=== PATIENT | female | born 1990 | race Caucasian/White ===

== ENCOUNTER 2016-08-04 12:44 | Inpatient (IN) | payer OTHER ==
[~2016-08-04] VITALS: Ht 157.4 cm; Wt 99.1 kg
--- NOTE | ~2016-08-04 | CON ---
[place], [place] REPORT OF CONSULTATION [id number] UN[facility] #: [id number] ROOM: 404 DOCTOR: JACQUELINE POLANCO MD BIRTHDATE: [birth year] DOS: 08/05/2016 PULMONARY CONSULTATION, EVALUATION AND MANAGEMENT CONSULTATION REQUESTED BY: Hospitalist Service. HISTORY OF PRESENT ILLNESS: A 26-year-old white female without any known past medical history of hypercoagulability or other pulmonary problem, presented to the Emergency Room with the patient developed symptoms of increased shortness of breath at work. The patient denies any symptoms of chest pain as well. The chest pain was described with coughing, which has started in the last few days. The coughing has been noted moderate to severe, nonproductive. The patient denies symptoms of fever or chills associated with that. Denies any symptoms of wheezing. She was seen in the Emergency Room and has been admitted to the hospital after she underwent a workup and CT of the chest was also completed that described relative poor quality and with the possibility of pulmonary embolism for this patient was also suggested. REVIEW OF SYSTEMS: CONSTITUTIONAL: The patient noticed symptom of fatigue and tiredness without any fever or chills. EYES: Denies any burning, redness, or tenderness. EARS, NOSE, AND THROAT: Denies sore throat, hoarseness, or otalgia. CARDIOVASCULAR: Denies angina pain, palpitations. The pain in the chest was described in the lower portion of the rib cage, occurs with cough. GASTROINTESTINAL: Denies nausea, vomiting, diarrhea, abdominal pain, hematemesis, melena, or hematochezia. SKIN: No lesions or rashes. GENITOURINARY: Denies dysuria, suprapubic pain, or hematuria. MUSCULOSKELETAL: Denies acute joint pain, redness, or tenderness. CENTRAL NERVOUS SYSTEM: Denies symptoms of dizziness, headache, or diplopia. Remaining systems were reviewed with the patient, they were noted all negative. PAST MEDICAL HISTORY: The patient was known with: 1. History of chronic obesity. 2. Tobacco use. PAST SURGICAL HISTORY: Noted as . SOCIAL HISTORY: The patient is not . She does have 3 children. Denies history of alcohol use or any illicit drugs use. Denies any occupation related pulmonary exposure history. FAMILY HISTORY: Mother is 40 years old, father is 39 years old and both described to be healthy without any hypercoagulability problems. DRUG ALLERGIES: Noted no known drug allergies. HOME MEDICATIONS: Noted control pills. [place], [place] REPORT OF CONSULTATION NAME: ERNESTINA HAYS UNIT #: [id number] ROOM: 404 DOCTOR: PAUL SMYTH MD,JACQUELINE BIRTHDATE: [birth year] PHYSICAL EXAMINATION: GENERAL: This is a 26-year-old white female, noted currently awake and alert without any distress. VITAL SIGNS: Height of 5 feet 2 inches, weight of 218 pounds, BMI 39.9. Vital signs of the patient which have been recorded shows a normal temperature, respiratory rate of 20-16, heart rate of 113-83, blood pressure 125/60-140/74. Pulse oxygen saturation of the patient noted on 2 L nasal cannula was 92% on admission. HEENT: Moderate obesity. Head was atraumatic. Eyes nonicterus. Decreased posterior pharyngeal space. CARDIOVASCULAR: S1, S2 is audible. LUNGS: Noted with generalized reduction of the breath sounds bilaterally without any crackles, rhonchi, or wheezing. ABDOMEN: Noted soft and obese. EXTREMITIES: Noted chronic obesity without any edema, clubbing, or cyanosis. LABORATORY DATA: The lactic acid on 08/04 for this patient was noted normal. CBC for the patient was noted as normal study. The influenza A and B nasal washing antigens were negative. CMP for the patient noted as normal BUN and creatinine. The PT, PTT for the patient yesterday was noted as normal. Repeat CK-MB and troponin for the patient were noted as normal. Repeat PT, PTT was normal as well. CMP of patient shows glucose 133, BUN 5, creatinine 0.54. Magnesium 2.2. Ultrasound of both lower extremities does not show evidence of deep venous thrombosis. The chest x-ray that was done, 2-view on 08/04/2016 for the patient was noted as possibility of acute pneumonic infiltration in the lungs. The CT scan of the chest, which was done was personally reviewed, shows evidence of infiltration, which were noted patchy in the lingula, area of consolidation. The CT of the chest was done, which was noted limited finding for this patient at this time were described with questionable attenuation in the left main pulmonary artery as a filling defect. A defect was also described for the patient in the right pulmonary artery by the radiologist, but the study was noted suboptimal. Motion artifact for this patient was noted. Subcarinal lymph nodes for the patient were also noted. IMPRESSION: 1. The patient who has been presented to the hospital at this time with the current finding of pain, which is described under the ribcage with ongoing symptoms of cough as well as chest pain. The patient was described possibility of pulmonary embolism, which was noted a questionable finding because of suboptimal study. Certainly, as I reviewed the CT scan of the chest, I am not very convinced that the patient does have pulmonary embolism because of the lymphoid tissue and fatty tissue noted in that area of the hilar area. Definitive finding of consolidation of the lingula for the patient was noted as finding consistent most likely acute pneumonia. 2. The patient does have a risk of control pills. A negative venous duplex was noted. There were no findings of deep venous thrombosis. [place], [place] REPORT OF CONSULTATION NAME: ERNESTINA HAYS UNIT #: [id number] ROOM: [facility] DOCTOR: PAUL SMYTH MD,[facility] BIRTHDATE: [birth year] PLAN OF TREATMENT: The patient is currently treated with use of bronchodilators, IV Solu-Medrol, and antibiotics for the community-acquired infection. She is also getting the Lovenox for the management of pulmonary embolism. The findings of this current abnormal CT scan will be discussed with another staff radiologist to get second opinion if necessary. We will definitively consider additional testing for this patient such as repeating CT of the chest with better study for more adequate pulmonary opacification to definitively rule out pulmonary embolism before committing the patient for the long-term anticoagulation. Hypercoagulability workup will be obtained for the patient if the diagnosis of pulmonary will be confirmed with repeat testing. There was no D-dimer done for this patient that is nonspecific for the pulmonary embolism or thromboembolism, but certainly if is noted negative, it does rule out the possibility of pulmonary embolism with higher specificity. At this time, the D-dimer if it would be done for this patient may be a false positive as well because of the consideration of infection. Thanks for allowing me to participate in the care of this patient. JACQUELINE MILLER MD CM:CONSTR:REPORT OF CONSULTATION 1609 09/07/16 1530 interface
--- NOTE | ~2016-08-04 | PR ---
[place], [place] PROGRESS NOTE NAME: ERNESTINA HAYS UNIT #: [id number] ROOM: 404 DOCTOR: JACQUELINE POLANCO MD BIRTHDATE: [birth year] DOS: 08/06/2016 PULMONARY PROGRESS NOTE SUBJECTIVE: She has been noted reduction of the chest pain and cough. Shortness of breath has been improving. There are no symptoms of abdominal pain. There was no hemoptysis. OBJECTIVE: VITAL SIGNS: Showed normal temperature, respiratory rate 20, heart rate of 111-81, blood pressure 139/61-128/64. HEENT: Chronic obesity. NECK: Supple. CARDIOVASCULAR SYSTEM: S1, S2 audible. LUNGS: Noted with moderate decreased breath sounds with occasional wheezing. Crackles still noted in the left lung. ABDOMEN: Soft, nontender. LABORATORY DATA AND DIAGNOSTIC STUDIES: D-dimer of the patient yesterday was noted as negative. The CT of the chest which was reviewed yesterday with another radiologist for this patient. He concurred with my finding and the current finding for this patient was noted consistent with evidence of pulmonary embolism. IMPRESSION: 1. The patient with acute pneumonia of the patient involving the left lingular subsegment with the current chest pain and acute exacerbation of asthmatic bronchitis of the patient has been considered. 2. Chronic obesity. 3. History of nicotine abuse. PLAN OF TREATMENT: The pulmonary embolism of the patient is not considered likely at this time. The patient's therapeutic Lovenox was discontinued completely yesterday and she was started on the DVT prophylaxis. The patient with the Lovenox 40 mg subQ daily. The patient has been receiving the corticosteroids, the antibiotics. The patient has been responding to the treatment positively. Lymphadenopathy, which was noted in the mediastinum of the patient may require further assessment as an outpatient to rule out lung disease such as sarcoidosis and others. The patient could be discharged home whenever it is necessary, tapering dose of prednisone, oral antibiotics, and bronchodilators. The case was also discussed with Dr. Vivek Mcmanus who is the attending for this patient for today's visit. [place], [place] PROGRESS NOTE NAME: ERNESTINA HAYS UNIT #: [id number] ROOM: 404 DOCTOR: JACQUELINE POLANCO MD BIRTHDATE: [birth year] JACQUELINE MILLER MD CM:LOCO [id number] JACQUELINE SMYTH MD 09/07/16 1529 interface
--- NOTE | ~2016-08-04 | WRIGHTHP ---
[place], [place] PATIENT HISTORY AND PHYSICAL EXAM NAME: ERNESTINA HAYS [facility] #: [id number] UNIT #: [id number] ROOM: 404 DOCTOR: SONY BEAL DO BIRTHDATE: [birth year] DOS: 08/04/2016 PRIMARY CARE PHYSICIAN: None. The patient was seen and evaluated with the resident on 08/04/2016. Please see the resident's note for further details. ASSESSMENT: 1. Acute bilateral pulmonary emboli. 2. Acute community acquired pneumonia. 3. Dyspnea on exertion. 4. Tobacco abuse. 5. Recent initiation of control approximately 2 months ago. PLAN: We will continue high dose Lovenox for anticoagulation. Antibiotics will be started for the pneumonia. Follow up on final blood cultures. Dr. Santos will be consulted for further evaluation. SONY BEAL DO CM:HISPHYS:PATIENT HISTORY AND PHYSICAL EXAMINATION [phone] SONY BEAL DO 08/04/16 183 interface
[~2016-08-04 12:44] MED LIST: AMOXICILLIN500 M2 PO; AMOXICILLIN500 MG PO; ANAPROX DS550 MG PO; CEPHALEXIN500 M1 PO; CIPROFLOXACIN500 MG PO; CLINDAMYCIN HC300 MG PO; COLACE100 MG PO; DIFLUCAN150 MG PO; DULCOLAX5 MG PO; EES400 MG PO; HYDROCODONE BIT1 T11 PO; IBUPROFEN600 MG PO; IRON FERROUS S325 MG PO; KEFLEX500 MG PO; MACROBID100 M1 PO; NKHM; PRENATAL1 TA1 PO; PRENATAL1 TA3 PO; PRENATAL1 TA7 PO; SALETO800 MG PO; TRAMADOL HCL50 MG PO; TYLENOL325 M1 PO; ZITHROMAX Z PA250 MG PO; ZOFRAN ODT4 MG SL
[2016-08-04 12:51] VITALS: BP 141/76
[2016-08-04 13:20] LABS: BASO # 0.1 10*3/uL (0.0-0.1); BASO % 0.8 % (0.0-1.0); EOS # 0.4 10*3/uL (0.0-0.4); EOS % 4.4 % (1.0-4.0); HEMATOCRIT 38.6 % (37.0-47.0); HEMOGLOBIN 12.3 g/dl (12.0-16.0); LYMPH # 2.4 10*3/uL (1.3-4.4); LYMPH % 29.7 % (27.0-41.0); MEAN CELL VOLUME 85.6 fl (81.0-99.0); MEAN CORPUSCULAR HGB 27.3 pg (27.0-31.0); MEAN CORPUSCULAR HGB CONC 31.9 g/dl (33.0-37.0); MEAN PLATELET VOLUME 11.1 fl (9.6-12.3); MONO # 0.5 10*3/uL (0.1-1.0); MONO % 6.6 % (3.0-9.0); NEUT # 4.6 10*3/uL (2.3-7.9); NEUT % 58.2 % (47.0-73.0); PLATELET COUNT AUTOMATED 317 10*3/uL (130-400); RED BLOOD COUNT 4.51 10*6/uL (4.10-5.10); RED CELL DISTRI WIDTH 16.9 % (0-14.5)
[2016-08-04 13:35] LABS: ALBUMIN 3.6 gm/dl (3.1-4.5); ALKALINE PHOSPHATASE 123 U/L (45-117); BILIRUBIN, TOTAL 0.4 mg/dl (0.2-1.0); BUN 8 mg/dl (7-24); CARBON DIOXIDE 25 mmol/L (21-32); CHLORIDE 106 mmol/L (98-107); EST GLOM FILT AFRICAN AMERICAN > 60 ml/min; GLUCOSE 90 mg/dL (65-99); POTASSIUM 4.2 mmol/L (3.5-5.1); SGOT/AST 25 IU/L (3-35); SGPT/ALT 63 U/L (12-78); SODIUM 140 mmol/L (136-145); TOTAL PROTEIN 8.3 gm/dL (6.4-8.2)
[2016-08-04 13:59] VITALS: BP 143/71
[2016-08-04 16:10] LABS: INTERNATIONAL NORM RATIO 0.9 (2.0-3.5); PROTHROMBIN TIME 9.1 SECONDS (9.0-12.4)
[2016-08-04 17:52] VITALS: BP 134/77
[2016-08-04 18:30] LABS: CPK 51 U/L (26-192)
[2016-08-04 18:33] LABS: CKMB < 0.5 ng/ml (0.5-3.6); TROPONIN I < 0.015 ng/ml (<0.5)
[2016-08-04 20:00] VITALS: BP 121/50
[2016-08-05] VITALS: BP 125/60
[2016-08-05 00:44] LABS: CPK 48 U/L (26-192)
[2016-08-05 00:50] LABS: CKMB < 0.5 ng/ml (0.5-3.6); TROPONIN I < 0.015 ng/ml (<0.5)
[2016-08-05 06:16] LABS: BASO % 0.1 % (0.0-1.0); HEMOGLOBIN 11.3 g/dl (12.0-16.0); IG # 0.1 10*3/uL (0.0-0.1); LYMPH # 1.2 10*3/uL (1.3-4.4); LYMPH % 10.2 % (27.0-41.0); MEAN CELL VOLUME 87.4 fl (81.0-99.0); MEAN CORPUSCULAR HGB CONC 33.2 g/dl (33.0-37.0); MEAN PLATELET VOLUME 11.5 fl (9.6-12.3); MONO # 0.2 10*3/uL (0.1-1.0); MONO % 1.9 % (3.0-9.0); NEUT # 10.2 10*3/uL (2.3-7.9); NEUT % 87.4 % (47.0-73.0); PLATELET COUNT AUTOMATED 258 10*3/uL (130-400); RED BLOOD COUNT 3.89 10*6/uL (4.10-5.10); RED CELL DISTRI WIDTH 17.8 % (0-14.5); WHITE BLOOD COUNT 11.7 10*3/uL (4.8-10.8)
[2016-08-05 06:26] LABS: CKMB 0.5 ng/ml (0.5-3.6); CPK 39 U/L (26-192); TROPONIN I < 0.015 ng/ml (<0.5)
[2016-08-05 06:34] LABS: HEMOGLOBIN A1c 5.1 % (4.8-5.6)
[2016-08-05 06:49] LABS: INTERNATIONAL NORM RATIO 0.9 (2.0-3.5); PROTHROMBIN TIME 9.4 SECONDS (9.0-12.4)
[2016-08-05 07:00] LABS: ALBUMIN 3.4 gm/dl (3.1-4.5); ALKALINE PHOSPHATASE 105 U/L (45-117); BILIRUBIN, TOTAL 0.3 mg/dl (0.2-1.0); BUN 5 mg/dl (7-24); CARBON DIOXIDE 22 mmol/L (21-32); CHLORIDE 109 mmol/L (98-107); CHOLESTEROL 219 mg/dL (<200); EST GLOM FILT AFRICAN AMERICAN > 60 ml/min; FREE T4 1.25 ng/dl (0.76-1.46); GLUCOSE 133 mg/dL (65-99); HDL CHOLESTEROL 57 mg/dl (40-60); LDL CHOLESTEROL 137 mg/dL (9-159); MAGNESIUM 2.2 mg/dL (1.5-2.1); PHOSPHOROUS 2.9 mg/dL (2.5-4.9); POTASSIUM 3.9 mmol/L (3.5-5.1); SGOT/AST 23 IU/L (3-35); SGPT/ALT 58 U/L (12-78); SODIUM 141 mmol/L (136-145); THYROID STIM HORMONE (HS) 0.305 uIU/ml (0.358-4.75); TOTAL PROTEIN 7.3 gm/dL (6.4-8.2); TRIGLYCERIDES 127 mg/dl (<150); VLDL CHOLESTEROL 25 mg/dL (6-40)
[2016-08-05 07:06] LABS: FOLIC ACID 10.4 ng/mL (>5.38); VITAMIN D, 25-HYDROXY 12.4 ng/mL (30-100)
[2016-08-05 08:00] VITALS: BP 140/74
[2016-08-05 12:00] VITALS: BP 136/70
[2016-08-05 16:00] VITALS: BP 129/79
[2016-08-05 20:00] VITALS: BP 129/62
[2016-08-06] VITALS: BP 121/66
[2016-08-06 08:00] VITALS: BP 120/64; BP 124/72
[2016-08-06] MEDS ORDERED: PROAIR HFA8.5 GM INH (11:20)
[2016-08-06] MEDS ORDERED: DOXYCYCLINE MO100 M1 PO (11:20)
[2016-08-06] MEDS ORDERED: PREDNISONE10 MG PO (11:20)
[2016-08-06] MEDS ORDERED: JUNEL FE 1/20 21 TAB PO (11:23)
[2016-08-06 12:00] VITALS: BP 139/61
== END 2016-08-06 13:29 | disposition home or self-care (01) | DRG 195 ==
LOC: ED 12:44 → 4E 16:08 → EDHOLD 16:08 → 4E 16:33
PROVIDERS: Family Medicine; Nurse Practitioner Family
DX: J18.0 Bronchopneumonia, unspecified organism (principal); I10 Essential (primary) hypertension; F17.200 Nicotine dependence, unspecified, uncomplicated; E66.9 Obesity, unspecified; R00.0 Tachycardia, unspecified; Z68.36 Body mass index [BMI] 36.0-36.9, adult

== ENCOUNTER → 2016-12-03 | Outpatient (CLI) | payer MEDICAID ==
[~2016-12-03] MED LIST changes: +DOXYCYCLINE MO100 M1 PO; +JUNEL FE 1/20 21 TAB PO; +PREDNISONE10 MG PO; +PROAIR HFA8.5 GM INH
[2016-12-03 18:05] LABS: BASO % 0.5 % (0.0-1.0); EOS # 0.1 10*3/uL (0.0-0.4); EOS % 1.4 % (1.0-4.0); HEMATOCRIT 42.3 % (37.0-47.0); HEMOGLOBIN 13.2 g/dl (12.0-16.0); LYMPH % 34.2 % (27.0-41.0); MEAN CELL VOLUME 84.9 fl (81.0-99.0); MEAN CORPUSCULAR HGB 26.5 pg (27.0-31.0); MEAN CORPUSCULAR HGB CONC 31.2 g/dl (33.0-37.0); MONO # 0.4 10*3/uL (0.1-1.0); NEUT # 5.1 10*3/uL (2.3-7.9); NEUT % 58.6 % (47.0-73.0); PLATELET COUNT AUTOMATED 270 10*3/uL (130-400); RED BLOOD COUNT 4.98 10*6/uL (4.10-5.10); RED CELL DISTRI WIDTH 17.2 % (0-14.5); WHITE BLOOD COUNT 8.7 10*3/uL (4.8-10.8)
[2016-12-03 18:37] LABS: ALKALINE PHOSPHATASE 90 U/L (45-117); BILIRUBIN, TOTAL 0.2 mg/dl (0.2-1.0); BUN 11 mg/dl (7-24); CARBON DIOXIDE 25 mmol/L (21-32); CHLORIDE 106 mmol/L (98-107); CHOLESTEROL 234 mg/dL (<200); EST GLOM FILT AFRICAN AMERICAN > 60 ml/min; GLUCOSE 80 mg/dL (65-99); HDL CHOLESTEROL 56 mg/dl (40-60); LDL CHOLESTEROL 155 mg/dL (9-159); POTASSIUM 4.3 mmol/L (3.5-5.1); SGOT/AST 14 IU/L (3-35); SGPT/ALT 34 U/L (12-78); SODIUM 140 mmol/L (136-145); TOTAL PROTEIN 8.1 gm/dL (6.4-8.2); TRIGLYCERIDES 115 mg/dl (<150); VLDL CHOLESTEROL 23 mg/dL (6-40)
[2016-12-03 18:44] LABS: THYROID STIM HORMONE (HS) 0.577 uIU/ml (0.358-4.75)
[2016-12-03 18:59] LABS: VITAMIN D, 25-HYDROXY 11.3 ng/mL (30-100)
[2016-12-03 19:00] LABS: FOLIC ACID 13.47 ng/mL (>5.38)
== END | disposition home or self-care (01) ==
LOC: LAB 17:23
DX: Z51.81 Encounter for therapeutic drug level monitoring (principal); Z79.899 Other long term (current) drug therapy

== ENCOUNTER 2018-01-01 20:58 | Emergency (ER) | payer MEDICAID ==
[~2018-01-01] VITALS: Ht 157.4 cm; Wt 117.0 kg
[2018-01-01] MEDS ORDERED: ZYRTEC10 MG PO (21:28)
[2018-01-01] MEDS ORDERED: AMOXICILLIN500 M2 PO (21:28)
[2018-01-01] MEDS ORDERED: FLONASE ALLERG9.9 ML NAS (21:28)
== END 2018-01-01 21:23 | disposition home or self-care (01) ==
LOC: ED 20:58
DX: J32.9 Chronic sinusitis, unspecified (principal); R04.0 Epistaxis; F17.200 Nicotine dependence, unspecified, uncomplicated